=== PATIENT | female | born 1990 | race Caucasian/White ===

== ENCOUNTER → 2022-09-11 | Outpatient (CLI) | payer OTHER ==
--- NOTE | 2022-09-11 11:52 | US ---
EXAMINATION TYPE: US transvaginal DATE OF EXAM: 09/11/2022 COMPARISON: NONE CLINICAL HISTORY: N92.6 IRREGULAR MENSES. TECHNIQUE: Transvaginal (TV). Date of LMP: 08-31-22 EXAM MEASUREMENTS: Uterus: 5.7 x 2.9 x 3.8 cm Endometrial Stripe: 0.4 cm Right Ovary: 2.8 x 2.1 x 1.9 cm Left Ovary: 2.7 x 1.8 x 1.9 cm 1. Uterus: Anteverted wnl 2. Endometrium: wnl 3. Right Ovary: wnl 4. Left Ovary: wnl 5. Bilateral Adnexa: wnl 6. Posterior cul-de-sac: wnl IMPRESSION: Unremarkable transvaginal pelvic ultrasound.
== END | disposition home or self-care (01) ==
LOC: RADUSWWP 10:45
PROVIDERS: ATTEND Family Medicine
DX: N92.6 Irregular menstruation, unspecified (principal)
CPT/HCPCS: 76830